=== PATIENT | male | born 1970 ===

== ENCOUNTER 2017-12-31 07:57 | Day surgery (SDC) | payer OTHER ==
--- NOTE | 2017-12-31 08:39 | CP.SDSHP ---
Same Day Surgery H & P - History Proposed Procedure: COLONSCOPY Pre-Op Diagnosis: SCREENING - Previous Medical/Surgical History Previous Surgical History: C/S , LAMPECTECTOMY , D/C - Physical Exam General Appearance: N Mental Status: Alert & Oriented x3 Neuro: WNL Heart: WNL Lungs: WNL GI: WNL - {Optional Preform as Required} Breast: WNL Abdomen: Other Rectal: Other Integument: WNL : WNL Ortho: WNL ENT: WNL - Impression Pt. Evaluated Today:Candidate for Anesthesia & Procedure: Yes - Date & Time Time: 08:39 Short Stay Discharge - Short Stay Discharge Admitting Diagnosis/Reason for Visit: RECTAL BLEEDING Disposition: HOME/ ROUTINE
[2017-12-31 08:47] VITALS: BMI 25.4
[2017-12-31] MEDS ORDERED: Belladonna-Phenobarbital PO STA ×2 (08:54→11:37)
[2017-12-31 09:25] VITALS: TEMP 97
[2017-12-31] MEDS ORDERED: Lactated Ringer's 1,000 ML IV ONE ×2 (10:20)
--- NOTE | 2017-12-31 10:27 | CP.SDSHP ---
Same Day Surgery H & P - History Proposed Procedure: COLONSCOPY Pre-Op Diagnosis: SEE NOTES - Previous Medical/Surgical History Misc: Other Pain: 4.Moderate Pain - Allergies Allergies: Allergies No Known Allergies Allergy (Verified 12/31/17 08:56) - Physical Exam General Appearance: N Vital Signs: Vital Signs 12/31/17 08:35 Temperature 97.0 F L Pulse Rate 67 Respiratory 19 Rate Blood Pressure 128/73 O2 Sat by Pulse 98 Oximetry Mental Status: Alert & Oriented x3 Neuro: WNL Heart: WNL Lungs: WNL GI: Other - {Optional Preform as Required} Breast: WNL Abdomen: Other Rectal: Other Integument: WNL : WNL Ortho: WNL - Impression Pt. Evaluated Today:Candidate for Anesthesia & Procedure: Yes - Date & Time Time: 10:28 Short Stay Discharge - Short Stay Discharge Admitting Diagnosis/Reason for Visit: RECTAL BLEEDING Disposition: HOME/ ROUTINE
[2017-12-31] MEDS ORDERED: Propofol 10 mg/ml Inj (20 ML) ONE (10:30)
[2017-12-31] MEDS ORDERED: Lactated Ringer's 500 ML IV SCH (10:45)
[2017-12-31 10:49] VITALS: O2SAT 100
[2017-12-31 12:17] VITALS: BP 127/85; PULSE 63; RESP 10
== END 2017-12-31 12:05 | disposition home or self-care (01) ==
LOC: C.ENDO 07:57
PROVIDERS: ATTEND Specialist
DX: K52.9 Noninfective gastroenteritis and colitis, unspecified (principal); K62.5 Hemorrhage of anus and rectum; R19.4 Change in bowel habit; R10.9 Unspecified abdominal pain; K64.1 Second degree hemorrhoids; K64.4 Residual hemorrhoidal skin tags; K60.2 Anal fissure, unspecified
CPT/HCPCS: 45380; 88305; J2704; J7120